=== PATIENT | female | born 2000 | race Hispanic/Latino ===

== ENCOUNTER 2018-07-16 08:55 | Outpatient (CLI) | payer OTHER ==
--- NOTE | 2018-07-16 10:52 | ULT ---
THYROID ULTRASOUND: History: Elevated PSH. Technique: Multiplanar grayscale and color doppler images were obtained in a thyroid ultrasound. FINDINGS: The thyroid is heterogeneous in echotexture without focal nodules or cysts. The thyroid lobes measure 4.6 and 5.0 cm in length on the right and left, respectively. 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 POS: [facility]
== END 2018-07-16 08:56 | disposition home or self-care (01) ==
LOC: BICULT 08:55
PROVIDERS: ATTEND Family Medicine
DX: E04.9 Nontoxic goiter, unspecified (principal); R94.6 Abnormal results of thyroid function studies; E01.0 Iodine-deficiency related diffuse (endemic) goiter
CPT/HCPCS: 76536